=== PATIENT | male | born 1955 | race Caucasian/White ===

== ENCOUNTER 2021-01-07 08:02 | Emergency (ER) | payer OTHER ==
[~2021-01-07] VITALS: Ht 167.6 cm; Wt 129.3 kg
[2021-01-07 08:08] VITALS: BP_SYST 163
[2021-01-07 08:17] LABS: BASOPHILS # (AUTO) 0.1 K/uL (0.0-0.2); EOSINOPHILS # (AUTO) 0.3 K/uL (0.0-0.4); EOSINOPHILS % (AUTO) 2.8 % (0.0-4.0); HEMATOCRIT 45.2 % (36-54); HEMOGLOBIN 15.2 g/dL (14.0-18.0); LYMPHOCYTES # (AUTO) 1.6 K/uL (1.0-5.5); LYMPHOCYTES % (AUTO) 17.1 % (20.5-51.5); MEAN CORPUSCULAR HEMOGLOBIN 27 pg (27-31); MEAN CORPUSCULAR HGB CONC 34 % (32-36); MEAN CORPUSCULAR VOLUME 80 fL (79.0-98.0); MONOCYTES # (AUTO) 0.7 K/uL (0.0-1.0); MONOCYTES % (AUTO) 7.2 % (1.7-9.3); NEUTROPHILS # (AUTO) 6.6 K/uL (1.8-7.7); NEUTROPHILS % (AUTO) 71.9 % (40.0-70.0); PLATELET COUNT (AUTO) 223 K/uL (130-430); RED BLOOD CELL COUNT(AUTO) 5.64 MIL/uL (4.2-6.2); RED CELL DISTRIBUTION WIDTH 15.8 % (9.0-15.0); WHITE BLOOD COUNT (AUTO) 9.2 K/uL (4.8-10.8)
[2021-01-07 08:28] LABS: CALCIUM 8.9 mg/dL (8.4-11.0); CREATININE 0.64 mg/dL (0.55-1.30); POTASSIUM 4.3 mmol/L (3.5-5.1)
[2021-01-07] MEDS ORDERED: FLUORESCEIN SODIUM 1 MG OPHTHALMIC STRIP OP ONE (08:30)
[2021-01-07 08:32] LABS: PROTHROMBIN TIME 10.3 SECS (9.5-12.5)
[2021-01-07] MEDS ORDERED: LACEYEO OP (08:34)
[2021-01-07] MEDS ORDERED: VALA500T PO (08:34)
[2021-01-07] MEDS ORDERED: PRED20TA PO (08:34)
[2021-01-07 08:39] LABS: ALBUMIN 3.8 g/dL (3.4-4.8); TOTAL BILIRUBIN 0.5 mg/dL (0.0-1.0)
[2021-01-07] MEDS ORDERED: ERYEYE LEFT EYE (09:28)
[2021-01-07] MEDS ORDERED: predniSONE 20 MG TABLET PO ONE (09:30)
[2021-01-07] MEDS ORDERED: ERYTHROMYCIN 0.5% EYE OINT 3.5 GM OP ONE (09:30)
[2021-01-07] MEDS: valACYclovir HCL 500 MG TABLET PO SCH ×2 (10:00→10:01)
[2021-01-07 10:45] VITALS: BP_SYST 139
== END 2021-01-07 10:17 | disposition home or self-care (01) ==
LOC: SED 08:02
DX: S05.02XA Injury of conjunctiva and corneal abrasion without foreign body, left eye, initial encounter (principal); G51.0 Bell's palsy; H10.32 Unspecified acute conjunctivitis, left eye; I10 Essential (primary) hypertension; E11.9 Type 2 diabetes mellitus without complications; Z79.899 Other long term (current) drug therapy; X58.XXXA Exposure to other specified factors, initial encounter; Y93.89 Activity, other specified; Y92.89 Other specified places as the place of occurrence of the external cause; Y99.8 Other external cause status
CPT/HCPCS: 36415; 70450; 71045; 76376; 80053; 82962; 84484; 85025; 85610; 93005; 99285; J7512

== ENCOUNTER 2021-02-19 16:26 | Emergency (ER) | payer OTHER ==
[~2021-02-19] VITALS: Ht 167.6 cm; Wt 131.5 kg
[~2021-02-19 16:26] MED LIST: ERYEYE LEFT EYE; LACEYEO OP; PRED20TA PO; VALA500T PO
[2021-02-19 16:28] VITALS: BP_SYST 151
[2021-02-19] MEDS ORDERED: VALA10002 PO (19:11)
[2021-02-19] MEDS ORDERED: ERYEYE RIGHT EYE (19:11)
[2021-02-19] MEDS ORDERED: PRED20TA PO (19:11)
[2021-02-19] MEDS ORDERED: CARB1DRO21 OP (19:11)
[2021-02-19 19:18] VITALS: BP_SYST 151
== END 2021-02-19 19:18 | disposition home or self-care (01) ==
LOC: SED 16:26
DX: G51.0 Bell's palsy (principal); I10 Essential (primary) hypertension; E11.9 Type 2 diabetes mellitus without complications; Z79.899 Other long term (current) drug therapy
CPT/HCPCS: 99283